=== PATIENT | male | born 1995 | race Caucasian/White ===

== ENCOUNTER 2016-11-26 15:06 | Emergency (ER) | payer SELFPAY ==
[~2016-11-26] VITALS: Ht 188 cm; Wt 91.6 kg
--- NOTE | 2016-11-26 15:30 | NUR ---
BIB SELF C/O R TOE INGROWN NOTICED X 2 WEEKS AGO, NAD NOTED, VSS. WAITING FOR MD NOYOLA.
[2016-11-26] MEDS ORDERED: LIDOCAINE 2% 20 ML MDV ONE (15:37)
--- NOTE | 2016-11-26 16:35 | NUR ---
Patient discharged to home in stable condition. Written and verbal after care instructions given. Patient verbalizes understanding of instruction.
[2016-11-26 16:48] VITALS: BP 118/77
[2016-11-26] MEDS ORDERED: LIDOCAINE 2% 20 ML MDV TP ONE (17:00)
== END 2016-11-26 16:50 | disposition home or self-care (01) ==
LOC: ER 15:08
DX: L60.0 Ingrowing nail (principal); L03.031 Cellulitis of right toe; Z90.89 Acquired absence of other organs
CPT/HCPCS: 11730; 99283; A4606; A6402; J3490; Z7610